=== PATIENT | female | born 1975 | race African-American/Black ===

== ENCOUNTER 2016-11-30 21:29 | Emergency (ER) | payer SELFPAY ==
[~2016-11-30] VITALS: Ht 165.1 cm; Wt 72.2 kg
[~2016-11-30 21:29] MED LIST: ACYC-1 PO; ERYT.5%O OP; MELO15TA2 PO; PRED5TAB PO; ROXI5TAB4 PO; TRAM50 PO
[2016-11-30 21:32] VITALS: BP 197/97; PULSE 100; RESP 16; TEMP 98.8; O2SAT 100
[2016-11-30 23:15] VITALS: BP 164/99; PULSE 94; RESP 20; TEMP 98.8; O2SAT 100
[2016-11-30] MEDS ORDERED: SODIUM CHLOR 0.9% 1000 ML INJ 1,000 ML IV ONE (23:19)
[2016-11-30] MEDS ORDERED: SODIUM CHLORIDE 0.9% FLUSH 5 ML FLUSH IVF PRN (23:30)
[2016-11-30 23:56] LABS: AUTOMATED NEUTROPHIL # 6.8 TH/MM3 (1.8-7.7); BASOPHIL # 0.1 TH/MM3 (0-0.2); BASOPHIL % 0.6 % (0.0-2.0); EOSINOPHIL # 0.7 TH/MM3 (0-0.4); EOSINOPHIL % 5.8 % (0.0-4.0); HEMATOCRIT 30.4 % (35.0-46.0); LYMPH % 27.3 % (9.0-44.0); LYMPHOCYTE # 3.1 TH/MM3 (1.0-4.8); MEAN CELL VOLUME 68.6 FL (80.0-100.0); MEAN CORPUSCULAR HEMOGLOBIN 22.2 PG (27.0-34.0); MEAN CORPUSCULAR HGB CONC 32.3 % (32.0-36.0); MONO % 6.7 % (0.0-8.0); NEUT % 59.6 % (16.0-70.0); PLATELET COUNT 423 TH/MM3 (150-450); RED BLOOD COUNT 4.43 MIL/MM3 (4.00-5.30); RED CELL DISTRIBUTION WIDTH 16.4 % (11.6-17.2); WHITE BLOOD COUNT 11.4 TH/MM3 (4.0-11.0)
[2016-11-30 23:57] LABS: HEMO FLAGS AUTO DIFF
[2016-12-01 00:09] LABS: APTT (PATIENT) 27.3 SEC (24.3-30.1); INTERNATIONAL NORMALIZED RATIO 0.9 RATIO; PROTHROMBIN TIME - PATIENT 10.4 SEC (9.8-11.6)
[2016-12-01] MEDS ORDERED: diphenhydrAMINE HCL 50 MG/ML VIAL IV PUSH ONE (00:15)
[2016-12-01] MEDS ORDERED: KETOROLAC TROMETHAMINE 30 MG/ML (IVP) VIAL IV PUSH ONE (00:15)
[2016-12-01] MEDS ORDERED: PROCHLORPERAZINE INJ 10 MG/2 ML VIAL IVS ONE (00:15)
[2016-12-01 00:27] LABS: BLOOD, URINE NEG (NEG); COMMENT (UR) CULT NOT INDICATED; CULTURE IF INDICATED CULT NOT INDICATED; GLUCOSE,URINE NEG (NEG); KETONE, URINE NEG (NEG); MUCUS URINE MOD /lpf (OCC); NITRITE,URINE NEG (NEG); PH, URINE 6.5 (5.0-8.5); SQUAMOUS EPITHELIAL CELL URINE 2 /hpf (0-5); URINE COLOR YELLOW (YELLW/STRAW)
[2016-12-01 00:28] LABS: ALT (GPT) 19 U/L (10-53); ANION GAP 9 MEQ/L (5-15); AST (GOT) 19 U/L (15-37); BICARBONATE 26.9 MEQ/L (21.0-32.0); BLOOD UREA NITROGEN 7 MG/DL (7-18); CHLORIDE 103 MEQ/L (98-107); GLOMERULAR FILTRATION RATE 85 ML/MIN (>89); POTASSIUM 3.3 MEQ/L (3.5-5.1); SODIUM (NA) 139 MEQ/L (136-145)
[2016-12-01 00:31] LABS: ALKALINE PHOSPHATASE 98 U/L (45-117); TOTAL BILIRUBIN ADULT 0.2 MG/DL (0.2-1.0)
[2016-12-01 00:56] LABS: PLATELET ESTIMATE SMEAR HIGH (NORMAL); PLATELET MORPHOLOGY NORMAL (NORMAL); SCAN/DIFF AUTO DIFF CONFIRMED
[2016-12-01] MEDS ORDERED: ULTR50TA5 PO (01:04)
--- NOTE | 2016-12-01 01:04 | PD ---
HPI Chief Complaint: Pain: Acute or Chronic Time Seen by Provider: 23:11 Travel History International Travel<30 days: No Contact w/Intl Traveler<30days: No Traveled to known affect area: No History of Present Illness HPI Patient 41-year-old female presents emergency department for evaluation of her chief complaint of headache as well as abdominal pain. Patient states that she gets migraine headaches and this feels very similar on the left side of her head. Patient has not tried anything prior to arrival. Patient also states she has a history of fibroids being followed outpatient and thinks that there started to act up on her again. Patient denies any vaginal bleeding vaginal discharge diarrhea nausea vomiting. Patient denies any fever or nuchal rigidity focal weakness. PFSH Past Medical History Cardiovascular Problems: Yes (HTN) Cerebrovascular Accident: Yes Diminished Hearing: No Headaches: Yes Reproductive: Yes ([employer]UM[employer]) Immunizations Current: Yes Tetanus Vaccination: < 5 Years Influenza Vaccination: No ?: Not LMP: 11/10/16 : 7 Para: 5 Miscarriage: 2 Social History Alcohol Use: No Tobacco Use: No Substance Use: No Allergies-Medications (Allergen,Severity, Reaction): Coded Allergies: Lortab (Verified Allergy, Severe, 11/30/16) Iodine (Verified Allergy, Mild, Rash, 11/30/16) Reported Meds & Prescriptions Reported Meds & Active Scripts Active Ultram (Tramadol HCl) 50 Mg Tab 50 Mg PO Q6H PRN Review of Systems Except as stated in HPI: all other systems reviewed are Neg Physical Exam Narrative GENERAL: Well-developed well-nourished no apparent distress SKIN: Warm and dry. HEAD: Atraumatic. Normocephalic. EYES: Pupils equal and round. No scleral icterus. No injection or drainage. ENT: No nasal bleeding or discharge. Mucous membranes pink and moist. NECK: Trachea midline. No JVD. CARDIOVASCULAR: Regular rate and rhythm. No murmur appreciated. RESPIRATORY: No accessory muscle use. Clear to auscultation. Breath sounds equal bilaterally. GASTROINTESTINAL: Abdomen soft, non-tender, nondistended. Hepatic and splenic margins not palpable. Genitourinary: Recommended by me but deferred by patient. MUSCULOSKELETAL: No obvious deformities. No clubbing. No cyanosis. No edema. NEUROLOGICAL: Awake and alert. Cranial nerves II through XII are grossly intact and nonfocal, 5 out of 5 strength in all 4 extremities. Cerebellar testing normal. PSYCHIATRIC: Appropriate mood and affect; insight and judgment normal. Data Data Last Documented VS Vital Signs Date Time Temp Pulse Resp B/P Pulse Ox O2 Delivery O2 Flow Rate FiO2 12/01/16 01:32 82 16 138/81 100 11/30/16 23:15 98.8 Room Air Orders Complete Blood Count With Diff (11/30/16 23:19) Comprehensive Metabolic Panel (11/30/16 23:19) Prothrombin Time / Inr (Pt) (11/30/16 23:19) Act Partial Throm Time (Ptt) (11/30/16 23:19) Ecg Monitoring (11/30/16 23:19) Iv Access Insert/Monitor (11/30/16 23:19) Oximetry (11/30/16 23:19) Sodium Chloride 0.9% Flush (Ns Flush) (11/30/16 23:30) Sodium Chlor 0.9% 1000 Ml Inj (Ns 1000 M (11/30/16 23:19) Urinalysis - C+S If Indicated (11/30/16 23:19) Ed Urine Pregnancytest Poc (11/30/16 23:19) Diphenhydramine Inj (Benadryl Inj) (12/01/16 00:15) Prochlorperazine Inj (Compazine Inj) (12/01/16 00:15) Ketorolac Inj (Toradol Inj) (12/01/16 00:15) Labs Laboratory Tests Test 11/30/16 11/30/16 23:35 23:44 Urine Color YELLOW Urine Turbidity CLEAR Urine pH 6.5 Urine Specific [place] 1.029 Urine Protein 30 mg/dL Urine Glucose (UA) NEG mg/dL Urine Ketones NEG mg/dL Urine Occult Blood NEG Urine Nitrite NEG Urine Bilirubin NEG Urine Urobilinogen 2.0 MG/DL Urine Leukocyte Esterase TRACE Urine RBC LESS THAN 1 /hpf Urine WBC 4 /hpf Urine Squamous Epithelial 2 /hpf Cells Urine Mucus MOD /lpf Microscopic Urinalysis Comment CULT NOT INDICATED White Blood Count 11.4 TH/MM3 Red Blood Count 4.43 MIL/MM3 Hemoglobin 9.8 GM/DL Hematocrit 30.4 % Mean Corpuscular Volume 68.6 FL Mean Corpuscular Hemoglobin 22.2 PG Mean Corpuscular Hemoglobin 32.3 % Concent Red Cell Distribution Width 16.4 % Platelet Count 423 TH/MM3 Mean Platelet Volume 7.5 FL Neutrophils (%) (Auto) 59.6 % Lymphocytes (%) (Auto) 27.3 % Monocytes (%) (Auto) 6.7 % Eosinophils (%) (Auto) 5.8 % Basophils (%) (Auto) 0.6 % Neutrophils # (Auto) 6.8 TH/MM3 Lymphocytes # (Auto) 3.1 TH/MM3 Monocytes # (Auto) 0.8 TH/MM3 Eosinophils # (Auto) 0.7 TH/MM3 Basophils # (Auto) 0.1 TH/MM3 CBC Comment AUTO DIFF Differential Comment AUTO DIFF CONFIRMED Platelet Estimate HIGH Platelet Morphology Comment NORMAL Prothrombin Time 10.4 SEC Prothromb Time International 0.9 RATIO Ratio Activated Partial 27.3 SEC Thromboplast Time Sodium Level 139 MEQ/L Potassium Level 3.3 MEQ/L Chloride Level 103 MEQ/L Carbon Dioxide Level 26.9 MEQ/L Anion Gap 9 MEQ/L Blood Urea Nitrogen 7 MG/DL Creatinine 0.89 MG/DL Estimat Glomerular Filtration 85 ML/MIN Rate Random Glucose 94 MG/DL Calcium Level 9.0 MG/DL Total Bilirubin 0.2 MG/DL Aspartate Amino Transf 19 U/L (AST/SGOT) Alanine Aminotransferase 19 U/L (ALT/SGPT) Alkaline Phosphatase 98 U/L Total Protein 8.3 GM/DL Albumin 3.4 GM/DL MDM Medical Decision Making Medical Screen Exam Complete: Yes Emergency Medical Condition: Yes Differential Diagnosis Headache, migraine, tension, fibroids, , anemia, pelvic pain which is chronic. Narrative Course Patient was roomed in the emergency department, she appears well. After negative test She was given Benadryl Compazine and Toradol which relieved her headache. States her abdominal pain is resolved as well. Belly is soft and her vital signs and lab work are reassuring. She states the headache is similar to her previous migraines. She has no nuchal rigidity and no red flag signs symptoms. There is no indication further workup in the emergency department at this time. Discussed with her need follow-up with a primary care physician or [employer]. Discussed return to ED criteria. Diagnosis Primary Impression: Headache Qualified Code: R51 - Nonintractable headache, unspecified chronicity pattern , unspecified headache type Additional Impression: Pelvic pain Additional Instructions: Follow-up with her [employer] as well as your primary care physician this week. If the pain becomes severe you start bleeding heavily or running high fevers return to the emergency department. Med/Other Pt SpecificInfo: Prescription(s) given Scripts Tramadol (Ultram)50 Mg Tab50 Mg PO Q6H PRN (PAIN) #12 TAB Ref 0 Prov:Eric Carlson MD 12/01/16 Disposition: 01 DISCHARGE HOME Condition: Stable Eric Carlson MD Dec 01, 2016 01:04
[2016-12-01 01:32] VITALS: BP 138/81
== END 2016-12-01 02:05 | disposition home or self-care (01) ==
LOC: NEPE 21:29
DX: R51 Headache (principal); R10.2 Pelvic and perineal pain; I10 Essential (primary) hypertension; D25.9 Leiomyoma of uterus, unspecified
CPT/HCPCS: 80053; 81001; 84703; 85025; 85610; 85730; 96374; 96375; 99284; J0780; J1200; J1885; J7030

== ENCOUNTER 2017-07-20 22:19 | Emergency (ER) | payer BC ==
[~2017-07-20] VITALS: Ht 165.1 cm; Wt 75.0 kg
[~2017-07-20 22:19] MED LIST changes: -ACYC-1 PO; -ERYT.5%O OP; -MELO15TA2 PO; -PRED5TAB PO; -ROXI5TAB4 PO; -TRAM50 PO; +ULTR50TA5 PO
[2017-07-20 22:22] VITALS: BP 160/90; PULSE 80; RESP 16; TEMP 98.7; O2SAT 98
[2017-07-21] MEDS ORDERED: LIDOCAINE HCL 1% 50 ML VIAL INFIL ONE
[2017-07-21] MEDS ORDERED: LIDOCAINE HCL 1% PF 30 ML VIAL ONE (00:15)
--- NOTE | 2017-07-21 00:34 | PD ---
HPI Chief Complaint: Skin Problem Time Seen by Provider: 23:55 Travel History International Travel<30 days: No Contact w/Intl Traveler<30days: No Traveled to known affect area: No History of Present Illness HPI Patient is a 42-year-old female presents emergency Department with swelling and pain about her right ring finger. States been going on for the past few days gradually worsening. She states that she noticed a hangnail on the radial aspect of her right ring finger and collected and then after that started having some swelling she states been intermittently draining well. Symptoms are moderate, gradually worsening, not associated with any nausea vomiting chest pain redness going up her arm. Patient cannot identify any alleviating or exacerbating factors. 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) Immunizations Current: Yes ?: Not LMP: 05/2017, DEPO : 7 Para: 5 Miscarriage: 2 Past Surgical History Section: Yes (X1) Gynecologic Surgery: Yes () Social History Alcohol Use: No Tobacco Use: No Substance Use: No Allergies-Medications (Allergen,Severity, Reaction): Coded Allergies: acetaminophen (Unverified Allergy, Severe, 07/20/17) hydrocodone (Unverified Allergy, Severe, 07/20/17) iodine (Unverified Allergy, Mild, Rash, 07/20/17) potassium iodide (Unverified Allergy, Mild, Rash, 07/20/17) povidone-iodine (Unverified Allergy, Mild, Rash, 07/20/17) sodium iodide (Unverified Allergy, Mild, Rash, 07/20/17) sodium iodide (Unverified Allergy, Mild, Rash, 07/20/17) Reported Meds & Prescriptions Reported Meds & Active Scripts Active Bactrim DS (Sulfamethoxazole-Trimethoprim) 800-160 Mg Tab 1 Tab PO BID Review of Systems Except as stated in HPI: all other systems reviewed are Neg Physical Exam Narrative GENERAL: Well-nourished, well-developed patient. SKIN: Focused skin assessment warm/dry. There is some swelling consistent with a paronychia on the radial aspect of the right ring finger. HEAD: Normocephalic. EYES: No scleral icterus. No injection or drainage. NECK: Supple, trachea midline. No JVD or lymphadenopathy. CARDIOVASCULAR: Regular rate and rhythm without murmurs, gallops, or rubs. RESPIRATORY: Breath sounds equal bilaterally. No accessory muscle use. GASTROINTESTINAL: Abdomen soft, non-tender, nondistended. MUSCULOSKELETAL: No cyanosis, or edema. Motor and sensory intact in all 4 extremities, Refill is brisk in all 10 digits of the upper extremities. All flexor and extensor tendon motions are intact in the upper extremities at the hand and wrist. BACK: Nontender without obvious deformity. No CVA tenderness. Data Data Last Documented VS Vital Signs Date Time Temp Pulse Resp B/P (MAP) Pulse Ox O2 Delivery O2 Flow Rate FiO2 07/21/17 01:52 91 18 182/102 (128) 100 07/20/17 22:22 98.7 Room Air Orders Orders Lidocaine 1% Inj (50 Ml) (Xylocaine 1% I (07/21/17 00:00) Lidocaine Pf 1% Inj (Xylocaine-Mpf 1% In (07/21/17 00:15) MDM Medical Decision Making Medical Screen Exam Complete: Yes Emergency Medical Condition: Yes Differential Diagnosis Paronychia, onychia, fracture unlikely, Narrative Course Patient will uncomplicated paronychia was drained in the emergency department after a digital block. Placed on Bactrim. Discussed return to ED criteria and symptomatic management at home. Procedures Procedure Narrative Incision and drainage: After informed consent and discussion of risks benefits competitions and alternatives patient verbally and gave her consent for incision and drainage. Patient underwent a digital block using 1% plain lidocaine, after satisfactory anesthetic patient had a cuticular incision with 11 blade which yielded about a teaspoon of purulent material. Patient tolerated the procedure well. Simple bandage was applied. Diagnosis Primary Impression: Paronychia of finger of right hand Med/Other Pt SpecificInfo: Prescription(s) given Scripts Sulfamethoxazole-Trimethoprim (Bactrim DS) 800-160 Mg Tab 1 TAB PO BID for Infection, #14 TAB 0 Refills Prov: Eric Carlson MD 07/21/17 Disposition: 01 DISCHARGE HOME Condition: Stable Eric Carlson MD Jul 21, 2017 00:34
[2017-07-21] MEDS ORDERED: BACT800T5 PO (00:35)
[2017-07-21 01:52] VITALS: BP 182/102
== END 2017-07-21 01:58 | disposition home or self-care (01) ==
LOC: NEPD 22:19
DX: L03.011 Cellulitis of right finger (principal); I10 Essential (primary) hypertension
CPT/HCPCS: 26010